=== PATIENT | female | born 1975 | race Caucasian/White ===

== ENCOUNTER 2019-06-26 14:03 | Emergency (ER) | payer BC ==
[2019-06-26 14:18] VITALS: BP 151/107
--- NOTE | 2019-06-26 15:18 | ER Document Report ---
ED Medical Screen (RME) - General Chief Complaint: Chest Pain Stated Complaint: CHEST PAIN Time Seen by Provider: 06/26/19 14:45 Notes: Patient is a 44-year-old female who presents emergency department with a chief complaint of chest pain. States that she has had little pinching pain since Sunday. She also states that she feels anxious. She admits to taking some Valium from a friend. Patient states that she saw her primary care provider for the same symptoms. Patient reports a right clavicle fracture recently. Patient has a history of thyroid cancer. Exam: S1, S2. 12-lead EKG shows sinus rhythm with a heart rate of 95. Appears anxious. I have greeted and performed a rapid initial assessment of this patient. A comprehensive ED assessment and evaluation of the patient, analysis of test results and completion of medical decision making process will be conducted by an additional ED providers. - Related Data Allergies/Adverse Reactions: adhesive tape Allergy (Verified 06/26/19 14:06) Physical Exam - Vital signs Vitals: Temp Pulse Resp BP Pulse Ox 98.2 F 99 16 151/107 H 98 06/26/19 14:15 06/26/19 14:15 06/26/19 14:15 06/26/19 14:15 06/26/19 14:15 Course - Vital Signs Vital signs: Temp Pulse Resp BP Pulse Ox 98.2 F 99 16 151/107 H 98 06/26/19 14:15 06/26/19 14:15 06/26/19 14:15 06/26/19 14:15 06/26/19 14:15
[2019-06-26 15:53] LABS: ABSOLUTE EOSINOPHILS # (AUTO) 0.1 10^3/uL (0.0-0.6); ABSOLUTE LYMPHOCYTES (AUTO) 3.1 10^3/uL (0.5-4.7); ABSOLUTE MONOCYTES (AUTO) 0.9 10^3/uL (0.1-1.4); ABSOLUTE NEUT (AUTO) 5.9 10^3/uL (1.7-8.2); BASOPHILS % (AUTO) 0.5 % (0-2); EOSINOPHILS % (AUTO) 1.1 % (0-6); HEMOGLOBIN 13.9 g/dL (12.0-15.5); LYMPHOCYTES % (AUTO) 30.7 % (13-45); MEAN CORPUSCULAR HEMOGLOBIN 27.9 pg (27.0-33.4); MEAN CORPUSCULAR VOLUME 85 fl (80-97); MONOCYTES % (AUTO) 8.5 % (3-13); PLATELET COUNT 328 10^3/uL (150-450); RED BLOOD COUNT 4.97 10^6/uL (3.72-5.28); SEGMENTED NEUTROPHILS % (AUTO) 59.2 % (42-78); TOTAL CELLS COUNTED % (AUTO) 100 %; WHITE BLOOD COUNT 10.1 10^3/uL (4.0-10.5)
[2019-06-26 16:16] LABS: ALBUMIN 4.8 g/dL (3.5-5.0); ALKALINE PHOSPHATASE 112 U/L (38-126); ANION GAP 11 (5-19); ASPARTATE AMINO TRANSFERASE 39 U/L (14-36); BILIRUBIN,DIRECT 0.2 mg/dL (0.0-0.4); BILIRUBIN,TOTAL 0.5 mg/dL (0.2-1.3); BLOOD UREA NITROGEN 13 mg/dL (7-20); CALCIUM 10.3 mg/dL (8.4-10.2); CARBON DIOXIDE 30 mmol/L (22-30); CHLORIDE 100 mmol/L (98-107); CREATINE KINASE 54 U/L (30-135); GLUCOSE 106 mg/dL (75-110); TOTAL PROTEIN 8.5 g/dL (6.3-8.2)
--- NOTE | 2019-06-26 16:21 | RADIOLOGY REPORT (SQ) ---
EXAM DESCRIPTION: CHEST SINGLE VIEW COMPLETED DATE/TIME: 06/26/2019 4:10 pm REASON FOR STUDY: chest pain COMPARISON: None. EXAM PARAMETERS: NUMBER OF VIEWS: One view. TECHNIQUE: Single frontal radiographic view of the chest acquired. RADIATION DOSE: NA LIMITATIONS: None. FINDINGS: LUNGS AND PLEURA: No opacities, masses or pneumothorax. No pleural effusion. MEDIASTINUM AND HILAR STRUCTURES: No masses. Contour normal. HEART AND VASCULAR STRUCTURES: Heart normal in size. Normal vasculature. BONES: No acute findings. HARDWARE: Surgical clips overlying the right apex. OTHER: No other significant finding. IMPRESSION: NO ACUTE RADIOGRAPHIC FINDING IN THE CHEST. TECHNICAL DOCUMENTATION: JOB ID: [id number] [employer]- All Rights Reserved Reading location - IP/workstation name: [email or web address]
[2019-06-26 16:38] LABS: TROPONIN I < 0.012 ng/mL
--- NOTE | 2019-06-26 18:23 | ER Document Report ---
ED General - General Chief Complaint: Chest Pain Stated Complaint: CHEST PAIN Time Seen by Provider: 06/26/19 14:45 - HPI Notes: Patient presents for concern for intermittent shortness of breath feeling anxious and feeling her heart race fast. This is been going on for several months she has a history of thyroid cancer and is soon to start radiation. They have already taken out several lymph nodes due to her cancer in her chest. She states that she has had 3 CTAs to rule out pulmonary emboli since March 2 outside hospitals due to her intermittent symptoms and they have all been negative. No history of heart attack or stroke. She is asymptomatic in the emergency department. Her last episode where she started feeling anxious feeling her heartbeat past was over 24 hours ago. - Related Data Allergies/Adverse Reactions: adhesive tape Allergy (Verified 06/26/19 14:06) Past Medical History - Social History Smoking Status: Unknown if Ever Smoked Family History: Reviewed & Not Pertinent Patient has suicidal ideation: No Patient has homicidal ideation: No Review of Systems - Review of Systems Constitutional: No symptoms reported EENT: No symptoms reported Cardiovascular: No symptoms reported Respiratory: See HPI Gastrointestinal: No symptoms reported Genitourinary: No symptoms reported Female Genitourinary: No symptoms reported Musculoskeletal: No symptoms reported Skin: No symptoms reported Hematologic/Lymphatic: No symptoms reported Neurological/Psychological: See HPI Physical Exam - Vital signs Vitals: Temp Pulse Resp BP Pulse Ox 98.2 F 99 16 151/107 H 98 06/26/19 14:15 06/26/19 14:15 06/26/19 14:15 06/26/19 14:15 06/26/19 14:15 - General General appearance: Appears well, Alert - HEENT Head: Normocephalic, Atraumatic Eyes: Normal Conjunctiva: Normal Cornea: Normal Extraocular movements intact: Yes Pupils: PERRL - Respiratory Respiratory status: No respiratory distress Chest status: Nontender Breath sounds: Normal Chest palpation: Normal - Cardiovascular Rhythm: Regular Heart sounds: Normal auscultation Murmur: No - Abdominal Inspection: Normal Distension: No distension Bowel sounds: Normal - Back Back: Normal, Nontender - Neurological Neuro grossly intact: Yes Cognition: Normal Orientation: AAOx4 - Psychological Associated symptoms: Normal affect Course - Re-evaluation Re-evalutation: 06/26/19 18:20 Patient has had 3 chest CTAs at outside hospital since March due to her intermittent symptoms of shortness of breath and anxiousness that is been going on for several months. Do not feel another is necessary and she agrees. Her work-up is negative negative troponin no concerning findings on EKG normal chest x-ray. Will provide Vistaril. She had her thyroid test performed by her cfo controller approximately 1 month ago. Do not feel like new testing is hernan anted as her symptoms have been going on for several months. Will provide Vistaril to see if this helps and she is to follow-up with her cfo controller as well as her primary care doctor within 1 week of her symptoms were to continue for reevaluation. Return precautions provided 06/30/19 14:19 - Vital Signs Vital signs: Temp Pulse Resp BP Pulse Ox 98.2 F 99 16 151/107 H 98 06/26/19 14:15 06/26/19 14:15 06/26/19 14:15 06/26/19 14:15 06/26/19 14:15 - Laboratory Result Diagrams: 06/26/19 15:36 06/26/19 15:36 Laboratory results interpreted by me: 06/26/19 15:36 Calcium 10.3 H AST 39 H Total Protein 8.5 H - Diagnostic Test Radiology reviewed: Reports reviewed - EKG Interpretation by [facility] EKG shows normal: Sinus rhythm Rate: Normal Rhythm: NSR Discharge - Discharge Clinical Impression: Intermittent shortness of breath, Intermittent tachycardia Condition: Good Disposition: HOME, SELF-CARE Additional Instructions: Please take medications as prescribed to see if this helps with your symptoms. Please follow-up with your family doctor and cfo controller if symptoms are not improving within the next week. Prescriptions: Hydroxyzine Pamoate [Vistaril 50 mg Capsule] 50 mg PO TID PRN #30 capsule PRN Reason:
--- NOTE | 2019-06-26 18:28 | EKG REPORT ---
SEVERITY:- BORDERLINE ECG - SINUS RHYTHM PROBABLE LEFT ATRIAL ABNORMALITY : Confirmed by: John Christensen MD 26-Jun-2019 18:27:21
== END 2019-06-26 19:02 | disposition home or self-care (01) ==
LOC: ER 14:03
DX: R06.02 Shortness of breath (principal); R00.0 Tachycardia, unspecified; C73 Malignant neoplasm of thyroid gland; Z91.048 Other nonmedicinal substance allergy status
CPT/HCPCS: 36415; 71045; 80053; 82550; 82553; 84484; 85025; 93005; 93010; 99284